=== PATIENT | male | born 1930 | race Caucasian/White ===

== ENCOUNTER 2017-09-23 20:41 | Inpatient (IN) | payer OTHER ==
[~2017-09-23] VITALS: Ht 182.9 cm; Wt 81.0 kg
--- NOTE | ~2017-09-23 | HC ---
[facility] [place] [address] CONSULTATION Name: KELLEN ZAVALA Room #: 247-P ADM IN M.R.#: [id number] Admission: 09/23/17 Attend Phys: Nelson Joshi MD Discharge: Date of : 30 Report #: [id number] THIS REPORT FOR: //name// CC: Britton Joshi REASON FOR CONSULTATION: I was asked to evaluate concerning pneumonia. HISTORY OF PRESENT ILLNESS: The patient is an 87-year-old who was transferred from [facility] with respiratory failure. The patient was initially treated at [facility] for small-bowel obstruction and sepsis. He required laparotomy on 08/10/2017. This specific surgical intervention is not clear at this time. He came back for a second-look procedure on 08/11/2017. Complications included non-STEMI, paroxysmal atrial fibrillation and congestive heart failure along with right upper extremity PICC-associated DVT. He had his abdominal wound left open to heal by secondary intention. Transferred to [facility] on 08/26/2017. He was malnourished. He was on IV antibiotic therapy including vancomycin and Zosyn. Vancomycin has been discontinued. He remains on Zosyn. He developed respiratory failure yesterday and was transferred to [facility] emergency room. He has been hypotensive. He had acute respiratory arrest and now is intubated on FiO2 of ____. He had a fairly large amount of tracheal secretions. There was a concern that he may have had a mucus plug. He remained afebrile. REVIEW OF SYSTEMS: He remains sedated. He has a left upper extremity midline catheter. Orally intubated. He has midline abdominal wound that is dressed. Indwelling Rdz catheter. No seizure activity. No diarrhea. It is unclear how much the patient had been eating prior to his arrival. ALLERGIES: None. MEDICATIONS: As noted on his MAR, now including vancomycin, Zosyn and Levaquin. PAST MEDICAL HISTORY: Bipolar disorder, ischemic heart disease, gastroesophageal reflux, hyperlipidemia, and hypertension. FAMILY HISTORY: Noncontributory. SOCIAL HISTORY: Single, nonsmoker, no significant alcohol intake. PHYSICAL EXAMINATION: VITAL SIGNS: Afebrile, blood pressure is in the 80 systolic on FiO2 of ____, he was unresponsive. HEENT: Pupils were reactive to light. Orally intubated. NECK: Supple. LUNGS: Coarse bilaterally, no consolidation. CARDIOVASCULAR: Heart was regular without appreciable murmur. [facility] [address] [place] [address] CONSULTATION Name: KELLEN ZAVALA Room #: 247-P [facility] IN .R.#: [id number] Admission: 09/23/17 Attend Phys: Nelson Joshi MD Discharge: Date of : 30 Report #: [id number] ABDOMEN: Mildly distended. Midline abdominal incisional wound was clean with good granulation tissue. No purulence. No surrounding erythema. No appreciable mass. EXTREMITIES: Unremarkable. GENITOURINARY: External genitalia unremarkable with indwelling Rdz catheter. EXTREMITIES: He did move all extremities spontaneously. LABORATORY STUDIES: Sodium 148, potassium 3.4, bicarbonate 35, creatinine 0.8, AST 32, bilirubin 0.5, alk phos 246, ALT 39, albumin of 1.3. Troponin 0.08. Hemoglobin 8.5, WBC 17.4, platelet count 305,000. Differential, 63% segs, 26% lymphs, 1 metamyelocyte, and 3 myelocytes. MRSA screen is pending. Urinalysis, few wbc's, many rbc's, few bacteria, yeast was present. ABG on 100% FIO2 earlier this morning showed a pO2 of 160, pCO2 of 68, pH 7.3 with a lactate of 2.5. Blood and urine cultures are pending. Influenza antigen negative. Chest x-ray, diffuse interstitial infiltrates, left basilar consolidation. Yesterday's CT of the chest and abdomen revealed distended gallbladder, large amount of stool in the colon, negative for PE, consolidation of left lung, likely due to mucous plugging. ____ consolidation in the right lung. IMPRESSION: An 87-year-old with respiratory failure, shock, bilateral infiltrates, suspect mucous plugging and pneumonia; postop bowel obstruction over 6 weeks ago; deep venous thrombosis right upper extremity, on anticoagulation; distended gallbladder, yet indeterminate; candiduria, catheter associated. Recommend continuing IV antibiotic therapy for healthcare-associated pneumonia. Continue full support. Await echocardiogram along with further imaging of the gallbladder. Check sputum culture. Obtain central venous access. Further assess nutritional status. I have discussed with nursing staff. <ELECTRONICALLY SIGNED> By: Kenyon Steele MD 09/25/17 1126 0944 1215 Kenyon Steele MD /nt
--- NOTE | ~2017-09-23 | CNG ---
[facility] [place] [address] CYTO-NONGYN REPORT PROCEDURE Name: KELLEN ZAVALA Room #: 247-P ADM IN M.R.#: [id number] Admission: 09/23/17 Date of : 30 Discharge: Report #: [id number] Path Case #: [id number] CYTOPATHOLOGY REPORT COLLECTION DATE: 09/28/2017 RECEIVED DATE: 09/29/2017 SUBMITTING PHYS: Dr. Dk Groves OTHER PHYS: Dr. Nelson Steele CLINICAL HISTORY: Increased SOA , sepsis, respiratory acidosis, HCAP, UTI, anemia, pneumonia SPECIMEN(S) RECEIVED: A.Pleural fluid, Right * * * * * * * * * * * * FINAL DIAGNOSIS: A. Right Pleural fluid: - No malignant cells identified. Mesothelial cells are present along with chronic inflammatory cells in a background of debris. PATHOLOGIST: Esperanza Altman M.D. REPORT ELECTRONICALLY SIGNED BY: Esperanza Altman M.D. DATE/TIME: 09/30/2017 14:53 * * * * * * * * * * * * GROSS PATHOLOGY: A. Pleural fluid, Right: The specimen is submitted unfixed, labeled "Kellen Zavala". Received by the Cytology Department is 20 mL of cloudy yellow fluid. One ThinPrep slide and a formalin fixed cell block were prepared. (clt 09.29.2017) EXPLOSIVES HANDLER(S): Sundar J Chaz, CT(ASCP) INITIAL CPT CODE(S): A; 44616, 03864 Professional services performed by [facility] at [facility] [address], [place] [address] Technical services performed by [facility] at [address] [place] [address]., [address], [place] [address]. [facility] [address] [place] [address], [address] [facility] [address] [place] [address] CYTO-NONGYN REPORT PROCEDURE Name: KELLEN ZAVALA Room #: 247-P ADM IN M.R.#: [id number] Admission: 09/23/17 Date of : 30 Discharge: Report #: [id number] Path Case #: [id number] [place] [id number] PHONE: [phone] DIRECTOR: Segun Coreas M.D. * * * END OF REPORT * * *
--- NOTE | ~2017-09-23 | EKG ---
[address] [place] [address] ELECTROCARDIOGRAM REPORT Name: KELLEN ZAVALA Room #: 247-P ADM IN M.R.#: [id number] Admission: 09/23/17 Attend Phys: Nelson Joshi MD Discharge: Date of : 30 Report #: [id number] THIS REPORT FOR: //name// [facility] ED Test Date: 2017-09-23 Test Time: 20:41:05 Pat Name: KELLEN ZAVALA Department: Room: [facility] Gender: M Massotherapist: SAKSHI : 1930 Requested By: Carlos Vickers Order Number: [id number] MD: Seb Hazel Measurements Intervals Remer Rate: 87 P: 26 LA: 177 QRS: 0 QRSD: 87 T: 32 QT: 474 QTc: 571 Interpretive Statements Sinus rhythm Atrial premature complex Probable anteroseptal infarct, old Prolonged QT interval No previous ECG available for comparison Electronically Signed On 09-24-2017 8:16:26 ROTARY KILN OPERATOR by Seb Hazel [email or web address] <ELECTRONICALLY SIGNED> By: Seb Hazel MD, [facility] 09/24/17 0816 40 40 Seb Hazel MD, FACC /EPI
--- NOTE | ~2017-09-23 | HC ---
[facility] [place] [address] CONSULTATION Name: KELLEN ZAVALA Room #: 247-P [facility] IN M.R.#: [id number] Admission: 09/23/17 Attend Phys: Nelson Joshi MD Discharge: Date of : 30 Report #: [id number] THIS REPORT FOR: //name// CC: Britton Joshi DATE OF SERVICE: 09/24/2017 CHIEF COMPLAINT: Surgical wound abdominal wall. HISTORY OF PRESENT ILLNESS: This is an 87-year-old male patient who was admitted to the hospital with respiratory failure. He was status code blue. He is intubated in the ICU. He is not responsive, is not able to answer any specific questions. He did have a hospitalization at [facility] in July for abdominal pain, had a small-bowel obstruction and sepsis, underwent exploratory laparotomy and bowel resection and secondary closure on 08/11. I have been asked to see him with regard to wound care. PAST MEDICAL HISTORY: Positive for bipolar disorder, ischemic heart disease, gastroesophageal reflux disease, dyslipidemia, hypertension and recent non-ST segment elevation myocardial infarction. PAST SURGICAL HISTORY: As detailed above. FAMILY HISTORY: Unknown. SOCIAL HISTORY: Unknown. ALLERGIES: None. MEDICATIONS: NovoLog, Levemir, Lopressor, Protonix, Zosyn, aspirin, Lipitor, Prozac, Lasix, potassium, Flomax, Coumadin. REVIEW OF SYSTEMS: Unable to be obtained as the patient is unresponsive. PHYSICAL EXAMINATION: VITAL SIGNS: At this time include pulse 93, respiratory rate 21, blood pressure 114/79, temperature 98.3. GENERAL: This is an unresponsive male patient who appears motionless in bed. HEENT: Normocephalic. Nose is clear. Throat demonstrates endotracheal tube in place. LUNGS: Coarse. HEART: Regular rhythm. ABDOMEN: Soft, nontender. There is a surgical incision in the midline that is . It is not dehisced, and there is a healing granulating base. There is one suture that is protruding through the surface that I have clipped to [facility] [address] [address] CONSULTATION Name: KELLEN ZAVALA Room #: 247-P ADM IN M.R.#: [id number] Admission: 09/23/17 Attend Phys: Nelson Joshi MD Discharge: Date of : 30 Report #: [id number] remove, otherwise the base is nice, healthy clean and granulating. EXTREMITIES: Show no evidence of breakdown. NEUROLOGIC: The patient is not responsive. LABORATORY DATA: Includes sodium 148, potassium 3.1, chloride 107, CO2 of 36, BUN 35, creatinine 0.9, glucose 74, total protein 6.1, albumin is very low at 1.3. White blood cell count 13.1, hemoglobin of 8.9, hematocrit of 27.8. CLINICAL IMPRESSION: 1. Surgical wound to the abdominal wall following a small-bowel obstruction and exploratory laparotomy in 07/2017. 2. Status post code blue. 3. Respiratory failure requiring mechanical ventilation. RECOMMENDATIONS: At this point in time, we will recommend Puracol AG followed by ABD to be changed 3 days a week to the abdominal wall. He will need to be turned and repositioned every 2 hours, need Prevalon boots to both lower extremities. He will need aggressive nutritional support to maximize wound healing. We will recommend continue all medications. I appreciate being asked to see him in consultation. <ELECTRONICALLY SIGNED> By: Yaron Davalos MD 09/25/17 1135 1746 2222 Yaron Davalos MD /nt
--- NOTE | ~2017-09-23 | D ---
[facility] [place] [address] DISCHARGE SUMMARY Name: KELLEN ZAVALA Room #: 437-P [facility] IN M.R.#: [id number] Admission: 09/23/17 Attend Phys: Nelson Joshi MD Discharge: 10/05/17 Date of : 30 Report #: [id number] THIS REPORT FOR: //name// CC: Britton Joshi FINAL DIAGNOSES: 1. Acute hypoxic hypercapnic respiratory failure. 2. Urfqu-ul-rhmnsly systolic heart failure. 3. Ischemic cardiomyopathy. 4. Coronary artery disease. 5. Atrial fibrillation. 6. Pleural effusion due to congestive heart failure. 7. Deep venous thrombosis of the right arm. 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 10. Anemia of chronic disease. 11. Severe protein-calorie malnutrition. HOSPITAL COURSE: The patient was admitted from an LTAC facility with shortness of breath and he quickly developed acute respiratory failure and required intubation and mechanical ventilation. Workup revealed bilateral pleural effusions and ischemic cardiomyopathy with ejection fraction 35%. Multiple consultants followed his case. He was also treated for healthcare-associated pneumonia with consideration of aspiration due to his oropharyngeal dysphagia. Although no cultures were positive, he was treated empirically, took him about a week to essentially wean from the ventilator. He did require a thoracentesis. Gradually, his condition stabilized and he was transferred up to the floor. Speech therapy saw him and he was cleared for pureed diet with nectar-thick liquids. He did have some hematuria related to Rdz catheter trauma. He was on Lovenox for level of DVT in the right arm. PHYSICAL EXAMINATION: GENERAL: On the day of discharge, he was awake and alert, stable. VITAL SIGNS: Reviewed electronically. He was eating 70%-80% of his meals. HEENT: His speech was still unclear which was chronic. LUNGS: Clear. HEART: Irregular. ABDOMEN: Soft, normoactive bowel sounds with old midline incision. EXTREMITIES: Showed no edema. DISPOSITION: To be transferred to [facility]. I signed his transfer medications. He will continue another week of antibiotics. He will be on an altered diet. Full therapies to be ordered. Lovenox to continue with [facility] [address] [place] [address] DISCHARGE SUMMARY Name: KELLEN ZAVALA Room #: 437-P [facility] IN M.R.#: [id number] Admission: 09/23/17 Attend Phys: Nelson Joshi MD Discharge: 10/05/17 Date of : 30 Report #: [id number] consideration to switching to oral treatment for DVT in the right arm. Overall, his prognosis is poor given his comorbidities, advanced age and debility. <ELECTRONICALLY SIGNED> By: Perez Roberto MD 10/06/17 0955 0927 0957 Perez Roberto MD /nt
--- NOTE | ~2017-09-23 | HC ---
[facility] [place] [address] CONSULTATION Name: KELLEN ZAVALA Room #: 437-P [facility] IN M.R.#: [id number] Admission: 09/23/17 Attend Phys: Nelson Joshi MD Discharge: 10/05/17 Date of : 30 Report #: [id number] THIS REPORT FOR: //name// CC: Britton Joshi DATE OF SERVICE: 09/24/2017 PULMONARY CONSULTATION REFERRING PROVIDER: Perez Roberto MD REASON FOR CONSULTATION: Respiratory failure. CHIEF COMPLAINT: Shortness of breath. HISTORY OF PRESENT ILLNESS: Our group was called this morning to evaluate this patient, seen in the ICU and followed throughout the morning. He is unable to give any history due to mechanical ventilatory support. He is an 87-year-old male transferred from [facility] for increasing shortness of breath. The patient was in respiratory distress in the Emergency Department, placed on BiPAP and subsequently admitted overnight; however, the patient decompensated, had a code blue arrest this morning requiring emergent intubation due to rapid desaturation. Nursing reports thick secretions being aspirated from airway. The patient is unable to give any further history. Review of records available shows a recent abdominal surgery where he was hospitalized at [facility] in July for a small bowel obstruction and sepsis including exploratory laparotomy and small bowel resection and appears to have a wound closing by secondary intent. Hospital course was complicated by non-ST elevation MT, atrial fibrillation, sepsis and upper extremity DVT associated with PICC line. Currently, not anticoagulated. ALLERGIES: None known. PAST MEDICAL HISTORY: 1. Bipolar affective disorder. 2. Coronary artery disease. 3. Gastroesophageal reflux disease. 4. Hyperlipidemia. 5. Hypertension. SOCIAL HISTORY: Unobtainable. FAMILY HISTORY: Unobtainable. [facility] [address] [place] [address] CONSULTATION Name: KELLEN ZAVALA Room #: 437-P [facility] IN .R.#: [id number] Admission: 09/23/17 Attend Phys: Nelson Joshi MD Discharge: 10/05/17 Date of : 30 Report #: [id number] REVIEW OF SYSTEMS: Unobtainable all due to his current status. CURRENT INPATIENT MEDICATIONS: 1. Vancomycin. 2. Levaquin. 3. Zosyn. 4. DuoNeb. Apparently, the patient may have also been on TPN at the LTAC. PHYSICAL EXAMINATION: VITAL SIGNS: Afebrile, pulse 90s, respiratory rate 15 set on the ventilator, blood pressure 99/65. GENERAL: This is an elderly male, sedated on the ventilator. ENT: Endotracheal tube in place. NECK: Supple, no lymphadenopathy. LUNGS: Coarse and diminished. CARDIOVASCULAR: Heart was regular. Cannot appreciate any murmurs. ABDOMEN: Soft. A midline wound appears to be healing by secondary intent with no significant pathology otherwise noted. EXTREMITIES: Revealed 1+ edema. They are warm with 2+ pulses. LABORATORY DATA: White blood cell count 13,000, hemoglobin 8.9, hematocrit 28, platelet count 285. Sodium 148, potassium 3.1, chloride 107, bicarbonate 36, BUN 35, creatinine 0.9, glucose 74. Initial arterial blood gas revealed pH 7.31, pCO2 of 75, pO2 of 56, bicarbonate 39 on nonrebreather mask. Chest x-ray revealed dense left lung atelectasis, mediastinal shift to the left with bilateral pleural effusions and pulmonary edema pattern after intubation. Chest x-ray revealed significant findings suggestive of pulmonary edema and still some volume loss and mediastinal shift to the left and markedly improved aeration of the lungs. IMPRESSION AND PLAN: 1. Pneumonia. 2. Acute hypoxemic respiratory failure. 3. Status post respiratory arrest, now on the ventilator. 4. Large bilateral pleural effusions, possibly pulmonary edema. 5. Sepsis due to the above. 6. Recent abdominal surgery for small bowel obstruction. 7. Acute hypercapnic respiratory failure, may be chronic to some degree given his findings of elevated bicarbonate at baseline on admission. 8. Upper extremity deep venous thrombosis. 9. Pyuria. 10. Anemia. 11. Hypernatremia and hypokalemia. [address] [address] CONSULTATION Name: KELLEN ZAVALA Room #: 437-P [facility] IN ..#: [id number] Admission: 09/23/17 Attend Phys: Nelson Joshi MD Discharge: 10/05/17 Date of : 30 Report #: [id number] SUGGESTIONS: 1. Wound care evaluation of abdominal wound. 2. Await cultures. 3. Antibiotics per infectious disease service. 4. Bronchodilators. 5. Decrease IV fluids and if needed, suggest hypotonic fluids to correct hypernatremia. 6. Followup x-rays and arterial blood gas in a.m. 7. Check echocardiogram. 8. May need thoracentesis. 9. Continue intensive care unit care. Additional recommendations to follow. Total critical care time 45 minutes, not including procedures. Discussed with nursing and Dr. Kenyon Steele. <ELECTRONICALLY SIGNED> By: Dk Groves MD 10/06/17 1233 1321 1930 Dk Groves MD /nt
--- NOTE | ~2017-09-23 | 2DMMODE ---
[facility] [address] [place] [address] 2 D/M-MODE ECHOCARDIOGRAM Name: KELLEN ZAVALA Room #: 247-P ADM IN M.R.#: [id number] Admission: 09/23/17 Attend Phys: Joya Griffiths Discharge: Date of : 30 Date of Service: 09/24/17 1105 Report #: [id number] THIS REPORT FOR: //name// APPROVED REPORT Study performed: 09/24/2017 09:04:49 EXAM: Comprehensive 2D, Doppler, and color-flow Echocardiogram Patient Location: ICU Room #: [facility] Status: routine BSA: 2.03 HR: 98 bpm BP: 97/67 mmHg Other Information Study Quality: Adequate Indications Congestive Heart Failure Dyspnea CAD 2D Dimensions LVEF(%): 40.29 (>50%) IVSd: 8.90 (7-11mm) LVOT Diam: 25.25 (18-24mm) LVDd: 53.51 mm PWd: 9.48 (7-11mm) Ascending Ao: 36.52 (22-36mm) LVDs: 42.90 (25-40mm) Aortic Root: 36.29 mm IVC: 23.00 mm Fajardo's LVEF: 40.29 % Aortic Valve AoV Peak Moshe.: 0.99 m/s AO Peak Gr.: 3.89 mmHg LVOT Max P.31 mmHg LVOT Max V: 0.76 m/s REINA Vmax: 3.86 cm2 Mitral Valve E/A Ratio: 0.8 MV Decel. Time: 394.37 ms MV E Max Moshe.: 0.66 m/s MV A Moshe.: 0.79 m/s MV PHT: 114.37 ms IVRT: 152.25 ms [facility] [address] [place] [address] 2 D/M-MODE ECHOCARDIOGRAM Name: KELLEN ZAVALA Room #: [facility] IN ..#: [id number] Admission: 09/23/17 Attend Phys: Joya Griffiths Discharge: Date of : 30 Date of Service: 09/24/17 1105 Report #: [id number] Pulmonary Valve PV Peak Moshe.: 0.89 m/s PV Peak Gr.: 3.19 mmHg Pulmonary Vein P Vein S: 0.48 m/s P Vein A: 0.30 m/s P Vein D: 0.30 m/s P Vein A Dur.: 101.5 msec P Vein S/D Ratio: 1.60 Tricuspid Valve TR Peak Moshe.: 2.42 m/s TR Peak Gr.: 23.50 mmHg PA Pressure: 34.00 mmHg Left Ventricle The left ventricle is normal size. There is normal left ventricular wall thickness. Left ventricular ejection fraction is moderately decreased. Septal and anterior wall hypokinesis LVEF is 30-35%. Grade I - abnormal relaxation pattern. Right Ventricle The right ventricle is normal size. The right ventricular systolic function is normal. Atria The left atrium size is normal. Thickened atrial septum consistent with lipomatous hypertrophy The right atrium size is normal. Aortic Valve The aortic valve is normal in structure. No aortic regurgitation is present. There is no aortic valvular stenosis. Mitral Valve The mitral valve is normal in structure. Trace mitral regurgitation. No evidence of mitral valve stenosis. Tricuspid Valve The tricuspid valve is normal in structure. There is trace tricuspid regurgitation. Estimated PAP 34 mmHg. There is mild pulmonary hypertension. Pulmonic Valve The pulmonary valve is normal in structure. Trace to mild pulmonic regurgitation. Great Vessels [facility] [address] [place] [address] 2 D/M-MODE ECHOCARDIOGRAM Name: KELLEN ZAVALA Room #: 247-P [facility] IN M.R.#: [id number] Admission: 09/23/17 Attend Phys: Joya Griffiths Discharge: Date of : 30 Date of Service: 09/24/17 1105 Report #: [id number] The aortic root is normal in size. IVC is dilated and collapses <50% with inspiration. Pericardium There is no pericardial effusion. <Conclusion> Left ventricular ejection fraction is moderately decreased. Septal and anterior wall hypokinesis LVEF is 30-35%. Grade I - abnormal relaxation pattern. Thickened atrial septum consistent with lipomatous hypertrophy The aortic valve is normal in structure. No aortic regurgitation is present. The mitral valve is normal in structure. Trace mitral regurgitation. There is trace tricuspid regurgitation. Estimated pulmonary artery pressure of 35 mmHg. There is no pericardial effusion. <ELECTRONICALLY SIGNED> By: Seb Hazel MD, FACC 09/24/17 1105 1105 1105 Seb Hazel MD, FACC /INF
--- NOTE | ~2017-09-23 | H ---
[facility] [place] [address] HISTORY AND PHYSICAL Name: KELLEN ZAVALA Room #: 247-P ADM IN M.R.#: [id number] Admission: 09/23/17 Attend Phys: Nelson Joshi MD Discharge: Date of : 30 Report #: [id number] THIS REPORT FOR: //name// CC: Britton Joshi DATE OF SERVICE: 09/24/2017 CHIEF COMPLAINT: Shortness of breath and respiratory failure. HISTORY OF PRESENT ILLNESS: The patient is an 87-year-old gentleman, transferred from [facility] facility for evaluation of shortness of breath. Over the last 24 hours, he has had increasing difficulties breathing with a high respiratory rate and low oxygen saturation. X-ray at the outlying facility revealed bilateral infiltrates, worsening. The Pulmonary Service and Internal Medicine Services evaluated him there and added antibiotics, respiratory treatments and a higher flow oxygen overnight; however, his condition has worsened, and this morning, he developed respiratory distress and was sent to the Emergency Room. Overnight, he has been admitted to ICU and treated for sepsis; however, this morning, he developed what sounds to be acute respiratory arrest requiring initiation of code blue team. He subsequently been intubated and placed on the ventilator. At this point, he has stable oxygen saturations, blood pressure and heart rate. His recent history is that he was hospitalized at [facility] in July for abdominal pain, where he was ultimately diagnosed with a small-bowel obstruction and sepsis. He eventually failed conservative treatment and required exploratory laparotomy with bowel resection and a secondary closure around 08/11. He had complications during that course including non-ST segment myocardial infarction, atrial fibrillation, sepsis and DVT of the right arm related to a PICC line. He has been medically stabilized and then transferred to [facility] on 08/26. All the history is obtained by reviewing the records as he cannot provide any details. 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 PAST SURGICAL HISTORY: As above. FAMILY HISTORY: Unknown. SOCIAL HISTORY: There was report of no tobacco or alcohol history. ALLERGIES: None. [facility] [address] [place] [address] HISTORY AND PHYSICAL Name: KELLEN ZAVALA Room #: 247-P ADM IN M.R.#: [id number] Admission: 09/23/17 Attend Phys: Nelson Joshi MD Discharge: Date of : 30 Report #: [id number] MEDICATIONS: NovoLog, Levemir, Lopressor, Protonix, Zosyn, aspirin, Lipitor, Prozac, Lasix, potassium, Flomax, Coumadin. REVIEW OF SYSTEMS: He is unable to give any review. OBJECTIVE: VITAL SIGNS: Pulse 84, respirations 15, O2 sat 100% on the ventilator, blood pressure 107/71. GENERAL: He is an elderly man, looks chronically ill, is not alert. HEAD AND NECK: Life support lines are present in the mouth and throat. He has poor dentition. Neck no JVD. LUNGS: Clear anteriorly. HEART: Irregular. No murmur. ABDOMEN: Hypoactive bowel sounds. There is a large midline incision, closed. EXTREMITIES: There is 1+ edema in the arms, right greater than left. NEUROLOGIC: At this point, he does not follow any neuro exam. LABORATORY AND X-RAY DATA: Reviewed. ASSESSMENT: 1. Acute hypercapnic hypoxic respiratory failure. 2. Sepsis. 3. Healthcare-associated pneumonia. 4. Small-bowel obstruction with recent exploratory laparotomy, bowel resection and secondary closure. 5. Recent non-ST segment myocardial infarction. 6. Atrial fibrillation. 7. Ischemic heart disease. 8. Acute deep venous thrombosis of the right arm due to a PICC line. 9. Anemia of chronic disease. 10. Toxic metabolic encephalopathy. 11. Severe protein-calorie malnutrition. PLAN: He has been admitted to ICU with full care at this point. Multiple consultants will be brought into the case. I have asked for a CT of the chest, abdomen and pelvis to assess for infectious processes in his bowel status. He has developed hypoglycemia, off his TPN related to previous insulin use, and at this point, all of that will be discontinued and just placed on IV fluid until we have more information. Overall, poor prognosis given his age, recent medical illness and complicating comorbidities. Pending labs, he may need a Lovenox for DVT prophylaxis. <ELECTRONICALLY SIGNED> By: Perez Roberto MD 09/24/17 1005 [id number] [id number] Perez Roberto MD /nt
[2017-09-23 20:43] VITALS: BP 111/59
[2017-09-23 21:02] LABS: BE(vivo) 8.8 mmol/L (-2 to +3); HCO3 36.9 mmol/L (22.0-26.0); PO2 55.8 mmHg (80.0-100.0); sO2 84.8 % (92.0-98.0)
[2017-09-23 21:09] LABS: HEMATOCRIT 26.7 % (42.0-52.0); HEMOGLOBIN 8.6 gm/dL (14.0-18.0); MCH 29.9 pg (26.0-34.0); MCHC 32.3 g/dL (28.0-37.0); MCV 92.4 fL (80.0-100.0); PLATELET COUNT 318 thou/uL (150-400); RBC 2.89 mil/uL (4.50-6.00); RDW 16.6 % (10.5-14.5); WBC 10.2 thou/uL (4.0-11.0)
[2017-09-23 21:15] LABS: CALCIUM 8.2 mg/dL (8.5-10.1); CREATININE 0.8 mg/dL (0.7-1.3); POTASSIUM 3.4 mmol/L (3.5-5.1)
[2017-09-23 21:23] LABS: ALBUMIN 1.3 g/dL (3.4-5.0); TOTAL BILIRUBIN 0.5 mg/dL (<0.1-1.0); TOTAL PROTEIN 6.1 g/dL (6.4-8.2); TROPONIN-I 0.08 ng/mL (<0.06)
[2017-09-23 21:24] LABS: URINE BILIRUBIN NEGATIVE (Negative); URINE BLOOD 3+ (Negative); URINE CLARITY CLEAR; URINE COLOR YELLOW; URINE GLUCOSE-RANDOM* NEGATIVE (Negative); URINE KETONES NEGATIVE (Negative); URINE NITRITE-REFLEX NEGATIVE (Negative); URINE PROTEIN (DIPSTICK) TRACE (Negative); URINE SPECIFIC GRAVITY 1.015 (1.005-1.035); URINE UROBILINOGEN 0.2 E.U./dl (0.2-1.0)
[2017-09-23 21:25] LABS: URINE LEUKOCYTES-REFLEX 1+ (Negative)
[2017-09-23] MEDS ORDERED: ASPIR 8181 MG PO (21:28)
[2017-09-23] MEDS ORDERED: LIPITOR40 MG PO (21:28)
[2017-09-23] MEDS ORDERED: DUONEB 2.5-0.5 M3 ML INH (21:28)
[2017-09-23] MEDS ORDERED: CLINIMIX E IV (21:29)
[2017-09-23] MEDS ORDERED: CLOTRIMAZOLE 1%15 G1 TOP (21:30)
[2017-09-23] MEDS ORDERED: PROZAC 10 MG CA10 MG PO (21:31)
[2017-09-23] MEDS ORDERED: SMOFLIPID 20%100 ML IV (21:31)
[2017-09-23] MEDS ORDERED: LASIX 40 MG TAB40 M2 PO (21:32)
[2017-09-23] MEDS ORDERED: NOVOLOG100 UNIT/1 SUBQ (21:33)
[2017-09-23 21:34] LABS: BACTERIA-REFLEX 1-9 Few /HPF (None Seen); CRYSTALS None Seen /LPF (None Seen); SQUAMOUS 0-3 Few /LPF (0-3); URINE RBC >20 Many /HPF (0-2); URINE WBC-REFLEX 6-15 Few /HPF (0-5)
[2017-09-23] MEDS ORDERED: LEVEMIR100 UNIT/1 SUBQ (21:34)
[2017-09-23 21:35] LABS: HYALINE CASTS 4-10 Moderate /LPF (None Seen); MUCUS 4-6 Moderate strn/LPF (None Seen); YEAST-REFLEX Present (None Seen)
[2017-09-23] MEDS ORDERED: TOPROL XL25 MG PO (21:35)
[2017-09-23] MEDS ORDERED: BAZA CR.1 E1 TOP (21:37)
[2017-09-23 21:38] LABS: ABSOLUTE NEUTROPHILS 9.6 thou/uL (1.4-8.2); ANISOCYTOSIS 1+; POLYCHROMASIA OCCASIONAL
[2017-09-23] MEDS ORDERED: PROTONIX40 M1 PO (21:38)
[2017-09-23] MEDS ORDERED: ZOSYN 3/0.373.375 G3 IVPB (21:38)
[2017-09-23] MEDS ORDERED: TAMSULOSIN HCL0.4 MG PO (21:39)
[2017-09-23] MEDS ORDERED: UNICOMPLEX M TA1 TA1 PO (21:39)
[2017-09-23] MEDS ORDERED: COUMADIN 4 MG TA4 M1 PO (21:39)
[2017-09-23 23:32] LABS: BE(vivo) 7.8 mmol/L (-2 to +3); PCO2 50.3 mmHg (35.0-45.0); PO2 119.7 mmHg (80.0-100.0); pH 7.435 (7.360-7.450); sO2 98.4 % (92.0-98.0)
[2017-09-23 23:40] VITALS: BP 120/51
[2017-09-23 23:55] VITALS: BP 120/67
[2017-09-24] VITALS (75 sets, daily range): BP systolic 74–170; BP diastolic 44–96
[2017-09-24 06:26] LABS: BE(vivo) 5.7 mmol/L (-2 to +3); HCO3 33.4 mmol/L (22.0-26.0); PO2 160.6 mmHg (80.0-100.0); sO2 98.8 % (92.0-98.0)
[2017-09-24 06:27] LABS: PCO2 68.1 mmHg (35.0-45.0); pH 7.308 (7.360-7.450)
[2017-09-24 06:38] LABS: HEMATOCRIT 27.2 % (42.0-52.0); HEMOGLOBIN 8.5 gm/dL (14.0-18.0); MCH 29.3 pg (26.0-34.0); MCHC 31.4 g/dL (28.0-37.0); MCV 93.4 fL (80.0-100.0); PLATELET COUNT 305 thou/uL (150-400); RBC 2.91 mil/uL (4.50-6.00); RDW 16.8 % (10.5-14.5); WBC 17.4 thou/uL (4.0-11.0)
[2017-09-24 06:42] LABS: CALCIUM 7.7 mg/dL (8.5-10.1); CREATININE 0.8 mg/dL (0.7-1.3); MAGNESIUM 1.9 mg/dL (1.8-2.4); POTASSIUM 3.4 mmol/L (3.5-5.1)
[2017-09-24 09:09] LABS: METAMYELOCYTES 1 %; MYELOCYTES 3 %; NUCLEATED RBCS 1 /100WBC; PLATELET ESTIMATE NORMAL
[2017-09-24 09:30] LABS: HEMATOCRIT 27.8 % (42.0-52.0); HEMOGLOBIN 8.9 gm/dL (14.0-18.0); MCH 29.3 pg (26.0-34.0); MCHC 31.9 g/dL (28.0-37.0); MCV 91.8 fL (80.0-100.0); RBC 3.03 mil/uL (4.50-6.00); RDW 16.9 % (10.5-14.5); WBC 13.1 thou/uL (4.0-11.0)
[2017-09-24 09:40] LABS: INR 1.5; PROTIME 15.2 Seconds (9.3-11.4)
[2017-09-24 09:53] LABS: ALBUMIN 1.3 g/dL (3.4-5.0); CALCIUM 8.1 mg/dL (8.5-10.1); CREATININE 0.9 mg/dL (0.7-1.3); POTASSIUM 3.1 mmol/L (3.5-5.1); TOTAL BILIRUBIN 0.6 mg/dL (<0.1-1.0); TOTAL PROTEIN 6.1 g/dL (6.4-8.2)
[2017-09-24 12:10] LABS: HCO3 29.4 mmol/L (22.0-26.0); PCO2 37.4 mmHg (35.0-45.0); PO2 52.9 mmHg (80.0-100.0); pH 7.513 (7.360-7.450); sO2 90.6 % (92.0-98.0)
[2017-09-25] VITALS (12 sets, daily range): BP systolic 94–119; BP diastolic 47–73
[2017-09-25 05:08] LABS: BE(vivo) 10.2 mmol/L (-2 to +3); HCO3 34.6 mmol/L (22.0-26.0); pH 7.494 (7.360-7.450); sO2 98.6 % (92.0-98.0)
[2017-09-25 05:28] LABS: ABSOLUTE NEUTROPHILS 7.6 thou/uL (1.4-8.2); BASOPHILS 0.1 % (0.0-2.0); EOSINOPHILS 1.2 % (0.0-3.0); HEMATOCRIT 23.9 % (42.0-52.0); HEMOGLOBIN 7.6 gm/dL (14.0-18.0); LYMPHOCYTES 8.9 % (24.0-44.0); MCH 29.3 pg (26.0-34.0); MCV 91.7 fL (80.0-100.0); MONOCYTES 4.6 % (1.0-8.0); PLATELET COUNT 241 thou/uL (150-400); POLYS 85.2 % (36.0-66.0); RBC 2.61 mil/uL (4.50-6.00); RDW 16.9 % (10.5-14.5); WBC 8.9 thou/uL (4.0-11.0)
[2017-09-25 05:39] LABS: INR 2.1
[2017-09-25 05:52] LABS: ALBUMIN 1.1 g/dL (3.4-5.0); CALCIUM 7.7 mg/dL (8.5-10.1); CREATININE 0.9 mg/dL (0.7-1.3); MAGNESIUM 1.8 mg/dL (1.8-2.4); PHOSPHORUS 2.4 mg/dL (2.5-4.9); TOTAL BILIRUBIN 0.7 mg/dL (<0.1-1.0); TOTAL PROTEIN 5.6 g/dL (6.4-8.2)
[2017-09-25 15:56] LABS: CALCIUM 7.8 mg/dL (8.5-10.1); CREATININE 0.8 mg/dL (0.7-1.3); POTASSIUM 3.2 mmol/L (3.5-5.1)
[2017-09-26] VITALS (23 sets, daily range): BP systolic 92–117; BP diastolic 48–87
[2017-09-26 05:03] LABS: CALCIUM 7.7 mg/dL (8.5-10.1); CREATININE 0.8 mg/dL (0.7-1.3); PHOSPHORUS 2.3 mg/dL (2.5-4.9); POTASSIUM 3.3 mmol/L (3.5-5.1)
[2017-09-26 08:56] LABS: HEMATOCRIT 24.6 % (42.0-52.0); HEMOGLOBIN 7.8 gm/dL (14.0-18.0); MCH 29.1 pg (26.0-34.0); MCHC 31.9 g/dL (28.0-37.0); MCV 91.5 fL (80.0-100.0); RBC 2.69 mil/uL (4.50-6.00); RDW 17.4 % (10.5-14.5); WBC 7.1 thou/uL (4.0-11.0)
[2017-09-26 09:00] LABS: CREATININE 0.8 mg/dL (0.7-1.3); POTASSIUM 3.5 mmol/L (3.5-5.1)
[2017-09-26 09:55] LABS: INR 2.1; PROTIME 21.2 Seconds (9.3-11.4)
[2017-09-27] VITALS (24 sets, daily range): BP systolic 92–117; BP diastolic 51–86
[2017-09-27 04:41] LABS: INR 1.6; PROTIME 16.2 Seconds (9.3-11.4)
[2017-09-27 04:45] LABS: CALCIUM 7.5 mg/dL (8.5-10.1); CREATININE 0.8 mg/dL (0.7-1.3); MAGNESIUM 1.9 mg/dL (1.8-2.4); PHOSPHORUS 2.4 mg/dL (2.5-4.9); POTASSIUM 3.6 mmol/L (3.5-5.1)
[2017-09-27 05:13] LABS: BE(vivo) 4.3 mmol/L (-2 to +3); HCO3 27.8 mmol/L (22.0-26.0); PCO2 36.9 mmHg (35.0-45.0); PO2 93.1 mmHg (80.0-100.0); pH 7.495 (7.360-7.450); sO2 97.7 % (92.0-98.0)
[2017-09-27 08:23] LABS: HEMATOCRIT 24.7 % (42.0-52.0); HEMOGLOBIN 7.9 gm/dL (14.0-18.0); MCH 29.2 pg (26.0-34.0); MCV 91.3 fL (80.0-100.0); RBC 2.7 mil/uL (4.50-6.00); RDW 16.9 % (10.5-14.5); WBC 6.2 thou/uL (4.0-11.0)
[2017-09-28] VITALS (23 sets, daily range): BP systolic 91–136; BP diastolic 52–97
[2017-09-28 05:28] LABS: INR 1.4; PROTIME 13.8 Seconds (9.3-11.4)
[2017-09-28 05:47] LABS: CALCIUM 7.6 mg/dL (8.5-10.1); CREATININE 0.7 mg/dL (0.7-1.3); MAGNESIUM 1.8 mg/dL (1.8-2.4); PHOSPHORUS 2.1 mg/dL (2.5-4.9); POTASSIUM 3.5 mmol/L (3.5-5.1)
[2017-09-28 15:12] LABS: CLARITY CLOUDY; COLOR AMBER; SOURCE RIGHT CHEST; TOTAL VOLUME 60 mL
[2017-09-28 15:19] LABS: BF NUCLEATED CELLS 376; BF RBC 7650
[2017-09-28 15:47] LABS: SOURCE CHEST
[2017-09-29] VITALS (24 sets, daily range): BP systolic 98–134; BP diastolic 55–86
[2017-09-29 06:22] LABS: HEMATOCRIT 25.4 % (42.0-52.0); HEMOGLOBIN 8.1 gm/dL (14.0-18.0); MCHC 31.9 g/dL (28.0-37.0); MCV 90.9 fL (80.0-100.0); RBC 2.8 mil/uL (4.50-6.00); RDW 16.9 % (10.5-14.5); WBC 5.4 thou/uL (4.0-11.0)
[2017-09-29 06:32] LABS: CALCIUM 7.7 mg/dL (8.5-10.1); CREATININE 0.8 mg/dL (0.7-1.3); POTASSIUM 3.5 mmol/L (3.5-5.1)
[2017-09-29 11:09] LABS: BODY FLUID ALBUMIN 0.9 g/dL (()); BODY FLUID AMYLASE 40 U/L (()); BODY FLUID GLUCOSE 126 mg/dL (()); BODY FLUID LDH 242 IU/L (()); BODY FLUID PROTEIN 2.2 g/dL (())
[2017-09-29 14:31] LABS: HCO3 28.1 mmol/L (22.0-26.0); PCO2 39.8 mmHg (35.0-45.0); PO2 107.4 mmHg (80.0-100.0); pH 7.466 (7.360-7.450); sO2 98.2 % (92.0-98.0)
[2017-09-30] VITALS (23 sets, daily range): BP systolic 95–125; BP diastolic 60–97
[2017-09-30 09:42] LABS: BE(vivo) 5.6 mmol/L (-2 to +3); HCO3 29.3 mmol/L (22.0-26.0); PCO2 38.8 mmHg (35.0-45.0); PO2 97.2 mmHg (80.0-100.0); pH 7.496 (7.360-7.450); sO2 97.9 % (92.0-98.0)
[2017-09-30 12:46] LABS: BF MACROPHAGE 29; BF NEUTROPHILS 16
[2017-10-01] VITALS (23 sets, daily range): BP systolic 103–134; BP diastolic 62–109
[2017-10-01 05:16] LABS: HEMATOCRIT 25.4 % (42.0-52.0); HEMOGLOBIN 8.2 gm/dL (14.0-18.0); MCH 28.5 pg (26.0-34.0); MCHC 32.1 g/dL (28.0-37.0); RBC 2.86 mil/uL (4.50-6.00); RDW 16.9 % (10.5-14.5); WBC 4.6 thou/uL (4.0-11.0)
[2017-10-01 05:36] LABS: CALCIUM 7.7 mg/dL (8.5-10.1); CREATININE 0.8 mg/dL (0.7-1.3); POTASSIUM 3.2 mmol/L (3.5-5.1)
[2017-10-02] VITALS (21 sets, daily range): BP systolic 107–151; BP diastolic 43–107
[2017-10-02 04:08] LABS: HEMATOCRIT 26.4 % (42.0-52.0); HEMOGLOBIN 8.7 gm/dL (14.0-18.0); MCV 87.8 fL (80.0-100.0); RBC 3.01 mil/uL (4.50-6.00); RDW 16.9 % (10.5-14.5); WBC 4.7 thou/uL (4.0-11.0)
[2017-10-02 04:16] LABS: CALCIUM 7.6 mg/dL (8.5-10.1); CREATININE 0.7 mg/dL (0.7-1.3); POTASSIUM 3.6 mmol/L (3.5-5.1)
[2017-10-03 00:26] VITALS: BP 132/75
[2017-10-03 04:33] VITALS: BP 130/72
[2017-10-03 07:44] LABS: CALCIUM 7.6 mg/dL (8.5-10.1); CREATININE 0.8 mg/dL (0.7-1.3); POTASSIUM 3.1 mmol/L (3.5-5.1)
[2017-10-03 08:50] VITALS: BP 151/76
[2017-10-03 16:13] VITALS: BP 133/83
[2017-10-03 19:58] VITALS: BP 137/90
[2017-10-04 03:50] VITALS: BP 134/79
[2017-10-04 07:23] LABS: HEMATOCRIT 27.8 % (42.0-52.0); HEMOGLOBIN 8.8 gm/dL (14.0-18.0); MCH 28.4 pg (26.0-34.0); MCHC 31.8 g/dL (28.0-37.0); MCV 89.4 fL (80.0-100.0); RBC 3.11 mil/uL (4.50-6.00); RDW 17.3 % (10.5-14.5); WBC 4.6 thou/uL (4.0-11.0)
[2017-10-04 07:35] LABS: CALCIUM 7.9 mg/dL (8.5-10.1); CREATININE 0.7 mg/dL (0.7-1.3); POTASSIUM 3.4 mmol/L (3.5-5.1)
[2017-10-04 07:38] VITALS: BP 123/75; BP 145/84
[2017-10-04 19:52] VITALS: BP 137/79
[2017-10-05 02:50] VITALS: BP 129/76
[2017-10-05 06:41] LABS: HEMOGLOBIN 10.3 gm/dL (14.0-18.0); MCHC 31.2 g/dL (28.0-37.0); MCV 89.9 fL (80.0-100.0); RBC 3.67 mil/uL (4.50-6.00); RDW 17.9 % (10.5-14.5); WBC 8.8 thou/uL (4.0-11.0)
[2017-10-05 06:47] LABS: CREATININE 0.9 mg/dL (0.7-1.3); POTASSIUM 3.7 mmol/L (3.5-5.1)
[2017-10-05 07:01] LABS: CALCIUM 8.5 mg/dL (8.5-10.1)
[2017-10-05 08:08] VITALS: BP 119/73
[2017-10-05] MEDS ORDERED: AUGMENTIN 875-1 EACH PO (09:15)
[2017-10-05] MEDS ORDERED: ENOXAPARIN80 MG/0.1 SUBQ (09:15)
== END 2017-10-05 14:25 | DRG 870 ==
LOC: ER 20:41 → ICU 22:13 → EROBS 22:13 → ICU 23:45 → 4S 10-02 18:39
PROVIDERS: Emergency Medicine; Internal Medicine; Internal Medicine Geriatric Medicine; Internal Medicine Pulmonary Disease; Specialist
DX: A41.9 Sepsis, unspecified organism (principal); E43 Unspecified severe protein-calorie malnutrition; J96.01 Acute respiratory failure with hypoxia; J96.02 Acute respiratory failure with hypercapnia; G92 Toxic encephalopathy; I50.43 Acute on chronic combined systolic (congestive) and diastolic (congestive) heart failure; J69.0 Pneumonitis due to inhalation of food and vomit; N39.0 Urinary tract infection, site not specified; J90 Pleural effusion, not elsewhere classified; E87.0 Hyperosmolality and hypernatremia; K56.609 Unspecified intestinal obstruction, unspecified as to partial versus complete obstruction; G72.81 Critical illness myopathy; T17.590A Other foreign object in bronchus causing asphyxiation, initial encounter; J98.11 Atelectasis; F31.9 Bipolar disorder, unspecified; K21.9 Gastro-esophageal reflux disease without esophagitis; E87.6 Hypokalemia; I25.9 Chronic ischemic heart disease, unspecified; I25.5 Ischemic cardiomyopathy; I48.91 Unspecified atrial fibrillation; I25.10 Atherosclerotic heart disease of native coronary artery without angina pectoris; D63.8 Anemia in other chronic diseases classified elsewhere; R65.20 Severe sepsis without septic shock; R13.10 Dysphagia, unspecified; R31.9 Hematuria, unspecified; E78.5 Hyperlipidemia, unspecified; I10 Essential (primary) hypertension; Z79.01 Long term (current) use of anticoagulants; I25.2 Old myocardial infarction; Z68.24 Body mass index [BMI] 24.0-24.9, adult; Z79.82 Long term (current) use of aspirin; Z79.899 Other long term (current) drug therapy; X58.XXXA Exposure to other specified factors, initial encounter; Y93.89 Activity, other specified; Y92.89 Other specified places as the place of occurrence of the external cause; Y99.8 Other external cause status
CPT/HCPCS: 10078; 10102

== ENCOUNTER 2017-10-05 18:02 | Inpatient (IN) | payer OTHER ==
[~2017-10-05] VITALS: Ht 182.9 cm; Wt 58.5 kg
--- NOTE | ~2017-10-05 | D ---
[facility] [place] [address] DISCHARGE SUMMARY Name: KELLEN ZAVALA Room #: 358-P [facility] IN M.R.#: [id number] Admission: 10/05/17 Attend Phys: Perez Roberto MD Discharge: 10/20/17 Date of : 30 Report #: [id number] THIS REPORT FOR: //name// CC: Britton Roberto DATE OF SERVICE: 10/20/2017 FINAL DIAGNOSES: 1. Sepsis. 2. Fungemia. 3. Chronic cholecystitis. 4. Severe protein-calorie malnutrition. 5. Anemia of chronic disease. 6. Deep vein thrombosis of the right upper extremity. 7. Paroxysmal atrial fibrillation. 8. Coronary artery disease. 9. Chronic systolic congestive heart failure. 10. Ischemic cardiomyopathy. 11. Hypernatremia. 12. Hypokalemia. HOSPITAL COURSE: The patient was admitted back from his LTAC facility with fever. He was treated for sepsis and ultimately diagnosed with positive blood cultures for yeast. Dr. Kenyon Steele followed him and ordered antibiotics accordingly. He was also noted previously to have cholecystitis. Followup study and PIPIDA scan were obtained. Dr. Huizar saw him in consultation. The plan was for laparoscopic cholecystectomy. He had a complication of anasarca and fluid overload requiring diuretics. Due to poor intake and poor mentation, he developed hypernatremia that required IV fluid support. Ultimately, he was medically stabilized and taken to the operating room. He subsequently had an open cholecystectomy. Please see the operative report. Postoperatively, he was watched another day. His mental status was improving. He was more alert with clear speech. He was beginning to eat a regular diet. DISPOSITION: He will be transferred to [facility] facility. He will continue micafungin to complete a 20-day course post his last negative blood culture. Other medications to continue. We will coordinate surgical followup through the facility and with Dr. Huizar. <ELECTRONICALLY SIGNED> By: Perez Roberto MD 10/22/17 0851 0917 0937 Perez Roberto MD /nt
--- NOTE | ~2017-10-05 | S ---
[facility] [place] [address] SURGICAL PATH RPT PROCEDURE Name: KELLEN ZAVALA Room #: 358- ADM IN M.R.#: [id number] Admission: 10/05/17 Date of : 30 Discharge: Report #: [id number] Path Case #: [id number] PATHOLOGY REPORT COLLECTION DATE: 10/18/2017 RECEIVED DATE: 10/19/2017 SUBMITTING PHYS: Dr. Sav Huizar OTHER PHYS: Dr. Perez Steele SPECIMEN(S) RECEIVED: A.Gallbladder * * * * * * * * * * * * FINAL DIAGNOSIS: "Gallbladder", cholecystectomy: - Acute necrotizing cholecystitis. - Lymph node with hyperplasia (1 node). (CLW:efren; 10/20/2017) PATHOLOGIST: Maliha Tinoco M.D. REPORT ELECTRONICALLY SIGNED BY: Maliha Tinoco M.D. DATE/TIME: 10/20/2017 14:21 * * * * * * * * * * * * GROSS PATHOLOGY: Received in formalin labeled "Kellen Zavala, gallbladder" and consists of an emerald green and previously opened gallbladder that measures 9.0 cm in length by 4.7 cm in diameter. The margin is inked. There is a 0.5 cm lymph node candidate attached to the neck. The wall ranges in thickness from 0.3 cm-1.0 cm. There is gross transmural necrosis identified. The mucosa is coated with sludge-like dark brown bile. There are no calculi present within container. Powerhouse Tender sections are submitted as A1. (YESI; 10/19/2017) CLINICAL HISTORY: Gallbladder disease INITIAL CPT CODE(S): A; 48571 Professional services performed by [facility] at [facility] [address] , [place] [address] [facility] [address] [place] [address] SURGICAL PATH RPT PROCEDURE Name: LUCASKELLEN Room #: 358-P ADM IN M.R.#: [id number] Admission: 10/05/17 Date of : 30 Discharge: Report #: [id number] Path Case #: [id number] Technical services performed by [facility] at [address] [place] [address], [facility] [address] [address]. [facility] [address] [place] [address] PHONE: [phone] DIRECTOR: Segun Coreas M.D. * * * END OF REPORT * * *
--- NOTE | ~2017-10-05 | HC ---
[facility] [place] [address] CONSULTATION Name: KELLEN ZAVALA Room #: 358-P [facility] IN M.R.#: [id number] Admission: 10/05/17 Attend Phys: Perez Roberto MD Discharge: 10/20/17 Date of : 30 Report #: [id number] THIS REPORT FOR: //name// CC: Britton Roberto HISTORY OF PRESENT ILLNESS: The patient is an 87-year-old who was here a couple weeks ago. The patient had quite a bit of pleural fluid. He had respiratory issue. At that time, the patient was noted to have distended gallbladder with fluid around the gallbladder. It was difficult to tell whether this was a primary issue or it was secondary to fluid overload. The patient apparently was just transferred to [facility] and then brought back the same day. The patient was noted to have a fever of [address] Kenyon Steele identified emi in his bloodstream. He has been eating some, but his appetite has been very poor. He has had fairly poor p.o. intake. The patient is somewhat difficult to evaluate because of his chronic medical condition and his recent emergent surgery for bowel necrosis. PHYSICAL EXAMINATION: GENERAL: The patient is alert, but difficult to understand. ABDOMEN: It is hard to tell if he is tender in the right upper quadrant, does not seem to be reacting much with palpation. He has a midline wound at the lower part, has not quite epithelialized yet. No distention, guarding, rigidity. IMPRESSION: The patient is an 87-year-old who has fever of 103 and emi in the bloodstream. The patient had a PIPIDA scan performed since readmission and his gallbladder does not function. He had a large amount of sludge in the gallbladder on his last admission. We will go ahead and repeat an ultrasound to see what the gallbladder currently looks like and also obtain liver function tests. Apparently, when he got to long-term acute care at [facility], he has not really eaten very well. The patient will follow up after the liver function and ultrasounds are done. If it is acute inflammation, which may be difficult to tell from chronic nonfunctioning gallbladder, I would recommend possibly surgery to remove the gallbladder. <ELECTRONICALLY SIGNED> By: Sav Huizar MD 11/10/17 1413 1738 1936 Sav Huizar MD /nt
--- NOTE | ~2017-10-05 | HC ---
[facility] [place] [address] CONSULTATION Name: KELLEN ZAVALA Room #: 358-P ADM IN M.R.#: [id number] Admission: 10/05/17 Attend Phys: Perez Roberto MD Discharge: Date of : 30 Report #: [id number] THIS REPORT FOR: //name// CC: Britton Roberto REASON FOR CONSULTATION: I was asked to evaluate concerning recurring fever. HISTORY OF PRESENT ILLNESS: The patient was an 87-year-old, known from his recent hospitalization where he was diagnosed with healthcare-associated pneumonia, aspiration with respiratory failure. He also had component of congestive heart failure and bilateral pulmonary effusions. Following thoracentesis and IV antibiotic therapy, he did wean from the ventilator. He was discharged on October 05 to [facility]. After admission there, he spiked temperature to 103 degrees and returned to acute care within several hours. He became more confused and hypoxic. He did not require reintubation. He was given IV antibiotic therapy. Cultures were obtained. Temperature has come down today. He is more alert and cooperative. It is also noted that he pulled his Rdz catheter out and had to have it replaced. He has had bloody drainage from his urethra. Pain persists in his lower abdomen, felt related to this event. Notes that his pain today has improved. He has had no diarrhea. There has been no significant cough or sputum production. He has had no rash. ALLERGIES: None. MEDICATIONS: As noted on his MAR, now having started vancomycin and Zosyn. He did receive 1 dose of levofloxacin. PAST MEDICAL HISTORY: Bipolar disorder, ischemic heart disease, gastroesophageal reflux, hyperlipidemia, hypertension. He does have issues with aphasia. FAMILY HISTORY: Noncontributory. SOCIAL HISTORY: Single, nonsmoker, no significant alcohol intake. REVIEW OF SYSTEMS: As noted above. PHYSICAL EXAMINATION: VITAL SIGNS: Afebrile, hemodynamically stable. His maximum temperature today was 101.1 axillary. GENERAL: He was alert and cooperative. He did have aphasia, but was able to speak some, was not in any acute distress. He had peripheral IV in place. HEENT: Unremarkable. NECK: Supple. LUNGS: Few crackles in the bases with coarse breath sounds anteriorly. HEART: Regular. [facility] [address] [address] CONSULTATION Name: KELLEN ZAVALA Room #: 358-P ADM IN M.R.#: [id number] Admission: 10/05/17 Attend Phys: Perez Roberto MD Discharge: Date of : 30 Report #: [id number] ABDOMEN: Soft. No specific tenderness. His midline abdominal incisional wound was clean with good granulation tissue. No significant drainage. A 1+ lower extremity edema. GENITOURINARY: He had indwelling Rdz catheter. There was bloody drainage from his penis shaft. He did have evidence of urethral trauma noting that the catheter enters his penis mid shaft. No scrotal edema. RECTAL: Not performed. EXTREMITIES: Unremarkable. NEUROLOGIC: Nonfocal. LABORATORY STUDIES: Lactate 1.8. Sodium 142, potassium 3.5, creatinine 0.9, alkaline phosphatase 267. Hemoglobin 9, WBC 9.1 with 93% segs, 3% lymphs, platelet count was 244,000. Urinalysis positive for wbc's, rbc's and bacteria along with yeast. Chest x-ray showed persistent bilateral lower lobe atelectasis changes. The upper lobe changes improved from previous study. Urine culture negative at 24 hours with blood cultures negative at 24 hours. IMPRESSION: Acute febrile illness. Concerned about healthcare-associated infection, noting urethral trauma from traumatic removal of his catheter. I am suspecting this is most likely source. Pulmonary source would also be considered. Also noted that the patient had gallbladder distention during his last hospital stay. He is currently asymptomatic in this regard with no significant increase in his liver function test. PLAN: Would recommend continuing broad antibiotic coverage, awaiting final culture results. We will add fluconazole. If he should continue to run fever, we will reimage his abdomen and recheck the gallbladder. <ELECTRONICALLY SIGNED> By: Kenyon Steele MD 10/07/17 0951 1240 1512 Kenyon Steele MD /nt
--- NOTE | ~2017-10-05 | EKG ---
[address] [address] ELECTROCARDIOGRAM REPORT Name: KELLEN ZAVALA Room #: 358-P ADM IN M.R.#: [id number] Admission: 10/05/17 Attend Phys: Perez Roberto MD Discharge: Date of : 30 Report #: [id number] THIS REPORT FOR: //name// [facility] Test Date: 2017-10-13 Test Time: 17:45:30 Pat Name: KELLEN ZAVALA Department: Room: 358 P Gender: M Electrician Journeyman Wireman: Joya CRUZ : 1930 Requested By: Angi Ibanez Order Number: [id number] MD: Seb Hazel Measurements Intervals Newton Rate: 98 P: 38 OK: 166 QRS: 9 QRSD: 85 T: 61 QT: 402 QTc: 514 Interpretive Statements Sinus rhythm Anterior infarct, old Prolonged QT interval Compared to ECG 09/23/2017 20:41:05 Atrial premature complex(es) no longer present Electronically Signed On 10-14-2017 7:18:49 CDT by Seb Hazel [email or web address] <ELECTRONICALLY SIGNED> By: Seb Hazel MD, [facility] 10/14/17 07 174 174 Seb Hazel MD, [facility] /EPI
--- NOTE | ~2017-10-05 | HC ---
[facility] [place] [address] CONSULTATION Name: KELLEN ZAVALA Room #: 358-P ADM IN M.R.#: [id number] Admission: 10/05/17 Attend Phys: Perez Roberto MD Discharge: Date of : 30 Report #: [id number] THIS REPORT FOR: //name// CC: Britton Roberto DATE OF SERVICE: 10/06/2017 PERSONAL PHYSICIAN: Genaro Steele MD CHIEF COMPLAINT: Abdominal wound and gluteal friction wound. HISTORY OF PRESENT ILLNESS: This is an 87-year-old white male who was just discharged from the hospital yesterday after being hospitalized for pneumonia, sepsis and small-bowel obstruction. We have been following the patient at that time for abdominal wall wound, which has been healing nicely after he had a bowel resection on 08/11/2017. The patient was discharged yesterday to [facility]. The patient last evening spiked a fever to 103 and had altered mental status and was returned back to the [facility] for further care. We have been asked to continue to follow him for his abdominal wall wound. Also, on admission, the patient was noted to have friction wound on the right gluteal region. The patient himself is confused and has altered of altered mental status and unable to give any history whatsoever at this time. History is obtained from the Emergency Department notes. PAST MEDICAL HISTORY: Significant for small bowel obstruction with resection on 08/11/2017, history of coronary artery disease, bipolar disease, chronic anemia, atrial fibrillation, congestive heart failure, recent pneumonia with respiratory failure requiring mechanical ventilation. CURRENT MEDICATIONS: Multiple, I reviewed the patient's medication list. DRUG ALLERGIES: None. SOCIAL HISTORY: The patient recently was residing at [facility]. FAMILY HISTORY AND REVIEW OF SYSTEMS: Unobtainable because of the patient's mental status. PHYSICAL EXAMINATION: VITAL SIGNS: Temperature 38.4, pulse 104, respiratory rate 18, BP 117/64. GENERAL: This is an awake, but noncommunicative white male who feels moderately ill. HEENT: Normocephalic, atraumatic. Mucous membranes are dry. Pupils are round. Sclerae are white. [facility] [address] [place] [address] CONSULTATION Name: KELLEN ZAVALA Room #: 358-P [facility] IN M.R.#: [id number] Admission: 10/05/17 Attend Phys: Perez Roberto MD Discharge: Date of : 30 Report #: [id number] NECK: Supple. There is no JVD or rigidity. LUNGS: Coarse breath sounds heard throughout. HEART: Irregularly irregular with 2/6 systolic ejection murmur. ABDOMEN: Soft, essentially nontender. Midline abdominal surgical wound is clean, granulating without any sign of infection. Periwound is otherwise intact without erythema or warmth. There is no tunneling, tracking or undermining. There is minimal serous drainage without odor. GENITOURINARY: Examination of the penis shows excoriation on the top of the glans as well as some blood around the meatus with a Rdz catheter in place. It appears the patient possibly has pulled on this; however, I cannot find any actual acute trauma. Testicles are swollen, but nontender. There is no erythema, warmth or signs of cellulitis around the area of the testicles or penis. Evaluation of the gluteal region reveals a friction induced wound on the right gluteal region, which is superficial and partial thickness without signs of erythema, warmth or infection. There is blanchable erythema noted on both the right and left gluteal region without signs of any other pressure changes. EXTREMITIES: The patient moves all extremities spontaneously. Bilateral heels are intact. NEUROLOGIC: The patient is confused, but seems to move all extremities. LABORATORY VALUES: White count 9.1, hemoglobin 9.0. Electrolytes within normal limits except for slightly low potassium at 3.3. On admission, the patient's lactic acid was 2.2. His albumin is markedly low at 1.5. KUB shows no signs of bowel obstruction. WOUND CARE COURSE: At this time, we will continue with Puracol and Optifoam to the incisional wound on the abdominal wall. The patient seems to be responding well to this. The patient will be put in an air loss mattress and will be turned every 2 hours. We used barrier cream to the friction wound on the right buttock twice daily and p.r.n. soilage. We will need to make sure we maximize the patient's oral supplementation of protein for healing. Depending on the patient's clinical status, the patient might require PEG tube in the future for healing. At this time, the patient is not a candidate for occupational, physical therapy given his confusion. IMPRESSION: 1. Surgical wound abdominal wall, status post bowel resection, overall healing well. 2. History of pneumonia with respiratory failure. 3. Sepsis. 4. Right gluteal friction wound present on admission. 5. Dorsal penile glans excoriation present on admission. 6. Generalized debility. 7. Severe protein calorie malnutrition. [facility] [address] [place] [address] CONSULTATION Name: KELLEN ZAVALA Room #: 358-P ADM IN M.R.#: [id number] Admission: 10/05/17 Attend Phys: Perez Roberto MD Discharge: Date of : 30 Report #: [id number] PLAN: Described in length as above. I appreciate the ability to consult on this patient. We will continue to follow. <ELECTRONICALLY SIGNED> By: Lorenzo Khan MD 10/06/17 1339 1207 1315 Lorenzo Khan MD /nt
--- NOTE | ~2017-10-05 | H ---
[facility] [place] [address] HISTORY AND PHYSICAL Name: KELLEN ZAVALA Room #: 358-P [facility] IN M.R.#: [id number] Admission: 10/05/17 Attend Phys: Perez Roberto MD Discharge: Date of : 30 Report #: [id number] THIS REPORT FOR: //name// CC: Britton Roberto CHIEF COMPLAINT: Fever. HISTORY OF PRESENT ILLNESS: The patient is an 87-year-old gentleman, sent back from his LTAC facility for evaluation of fever. He was just hospitalized here for several weeks related to acute respiratory failure requiring intubation, mechanical ventilation and slow ventilator weaning. 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 Gradually, he was weaned from the vent and extubated, NG tube removed and he was advanced to a diet and sent up on the floor where he was for the last several days. He was switched to oral antibiotic and discharged to the LTAC facility. Upon arrival there, the report from nursing assessment was that he had a temperature of 103 and slightly hypoxic with room air sats in the high 80s to low 90s. He was redirected to the Emergency Room for evaluation. PAST MEDICAL HISTORY: As above. He has had history of cardiac arrest twice. He had a history of exploratory laparotomy with small bowel excision related to obstruction, and I believe necrosis that was treated at an [facility]. PAST SURGICAL HISTORY: As above. FAMILY HISTORY: Unknown. SOCIAL HISTORY: Unknown. ALLERGIES: None. MEDICATIONS: Aspirin, DuoNeb, Lovenox, Augmentin. REVIEW OF SYSTEMS: He opens his eyes to his name. He seems to nod yes or no, but really cannot give any other review. OBJECTIVE: VITAL SIGNS: Temperature 38.4, pulse 104, respirations 18, blood pressure 117/64, O2 sat 96% on room air. GENERAL: As mentioned, he opens his eyes to his name. HEAD AND NECK: Unremarkable. LUNGS: Clear. HEART: Regular. ABDOMEN: Soft, normoactive bowel sounds. Midline incisional scar. EXTREMITIES: No cyanosis, clubbing or edema. [facility] [address] [place] [address] HISTORY AND PHYSICAL Name: KELLEN ZAVALA Room #: 358-P [facility] IN .R.#: [id number] Admission: 10/05/17 Attend Phys: Perez Roberto MD Discharge: Date of : 30 Report #: [id number] NEUROLOGIC: He moves all extremities. Global strength about 3/5 throughout. Lab, x-ray data reviewed. Discussed the case with Dr. Kyle Steele. ASSESSMENT: 1. Febrile illness. 2. 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 3. Chronic systolic heart failure, EF 35%. 4. Atrial fibrillation. 5. Deep venous thrombosis of the right arm. 6. Recent major abdominal surgery. 7. Recent respiratory failure. 8. Oropharyngeal dysphagia. 9. Protein calorie malnutrition. 10. Anemia of chronic disease. 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 PLAN: General antibiotics have been ordered while working up his fever. At this point, most likely seems to be urinary tract. He is not hypoxic, so pneumonia seems less likely. Studies will continue and once stabilized, return to the LTAC. <ELECTRONICALLY SIGNED> By: Perez Roberto MD 10/07/17 0959 [id number] Perez Roberto MD /nt
--- NOTE | ~2017-10-05 | HC ---
[facility] [place] [address] CONSULTATION Name: KELLEN ZAVALA Room #: 358-P [facility] IN M.R.#: [id number] Admission: 10/05/17 Attend Phys: Perez Roberto MD Discharge: Date of : 30 Report #: [id number] THIS REPORT FOR: //name// CC: Britton Roberto DATE OF SERVICE: 10/15/2017 REASON FOR CONSULTATION: Hypernatremia. HISTORY OF PRESENT ILLNESS: The patient is not able to provide me with the history. He is confused. I am being consulted to manage his hypernatremia. He had been in and out of the hospital for numerous issues including pneumonia and respiratory failure. He is known to have extensive past medical history with ischemic heart disease, bipolar disorder, and hypertension. It looks like that he has some issues with aphasia. [facility]. He came back with confusion and hypoxia. He was treated accordingly in the Intensive Care Unit as a case of septic shock. He was then found to have what seems to be cholecystitis. I am being asked to evaluate his hypernatremia and manage accordingly. PAST MEDICAL HISTORY: 1. Status post cardiac arrest. 2. Ex-lap. 3. Hypertension. 4. Aphasia. 5. Recurrent pneumonia. PAST SURGICAL HISTORY: Unknown and the patient is not able to provide me with the details. FAMILY HISTORY: Unknown given the patient's mental status. SOCIAL HISTORY: Unobtainable given the patient's mental history. ALLERGIES: None. REVIEW OF SYSTEMS: Completely unobtainable given the patient's mental status. MEDICATIONS: Currently maintained on: 1. Lovenox. 2. Albuterol. 3. D5W. 4. Zosyn. PHYSICAL EXAMINATION: [facility] [address] [place] [address] CONSULTATION Name: KELLEN ZAVALA Room #: 358-P [facility] IN .R.#: [id number] Admission: 10/05/17 Attend Phys: Perez Roberto MD Discharge: Date of : 30 Report #: [id number] GENERAL: Disoriented. VITAL SIGNS: Temperature 36.8, blood pressure 140/84. HEAD AND NECK: Extremely dry mucous membrane. CHEST: No crackles. CARDIOVASCULAR: Regular. ABDOMEN: Soft, nontender. LOWER EXTREMITIES: No edema. LABORATORY DATA: Reviewed. Sodium is down to 156. Creatinine is 1.3. ASSESSMENT, IMPRESSION, PLAN: 1. Hypernatremia. 2. Cholecystitis. His hypernatremia is due to a total free body water deficit. This will need aggressive measures with the D5W. Avoid normal saline. Avoid lactated Ringer. Very high comorbidity. Very high risk for any surgical intervention. <ELECTRONICALLY SIGNED> By: Estevan Galicia MD 10/18/17 0848 [id number] Estevan Galicia MD /nt
--- NOTE | ~2017-10-05 | O ---
[facility] [place] [address] OPERATIVE REPORT Name: KELLEN AZVALA Room #: 358-P [facility] [place] M.R.#: [id number] Admission: 10/05/17 Attend Phys: Perez Roberto MD Discharge: 10/20/17 Date of : 30 Report #: [id number] THIS REPORT FOR: //name// CC: Britton Roberto DATE OF SERVICE: 10/18/2017 PREOPERATIVE DIAGNOSES: Cholecystitis with sludge and nonfunctional gallbladder. POSTOPERATIVE DIAGNOSES: Acute gangrenous cholecystitis with sludge. Intraabdominal adhesion from prior surgery and adhesions surrounding the gallbladder and walled off gallbladder by dense inflammation. PROCEDURES PERFORMED: Attempted laparoscopic approach converted to open cholecystectomy with intraoperative cholangiogram. SURGEON: Sav Huizar MD ANESTHESIA: General anesthesia. ESTIMATED BLOOD LOSS: 125 mL. COMPLICATIONS: None. FINDINGS: The patient had adhesions in the right abdomen. Laparoscopically was not able to identify the gallbladder. Incision was made in the right upper quadrant subcostally and the gallbladder was densely walled off. The gallbladder is necrotic. Small fluid around the gallbladder was cultured. The gallbladder fluid was also cultured. PROCEDURE NOTE: With the patient under general anesthesia, abdomen was prepped and draped in sterile fashion. The patient received IV antibiotics about 2 hours ago. He was on a scheduled course. The patient had a midline scar. An incision was made about the umbilical level, but on the right side. This was along the edge of the rectus muscle. After incising through the skin and subcutaneous tissue, the oblique muscle was divided. External oblique muscle was isolated. A 0 Vicryl suture placed on the fascia. Muscle was spread and then the posterior sheath was opened. It looked like there was a free space here and Origin balloon trocar was then placed through this. A 0 Vicryl suture placed on the posterior wall also for retraction. Abdominal cavity was insufflated with CO2 when I put the camera in. It can tell that I was underneath a thin omentum. I can see the transverse colon directly in front of me superior from where I was looking. There was adhesion of small bowel to the left side. No harm to any bowel. I did not see any open space. The abdominal [facility] [address] [place] [address] OPERATIVE REPORT Name: KELLEN ZAVALA Room #: 358-P [facility] IN M.R.#: [id number] Admission: 10/05/17 Attend Phys: Perez Roberto MD Discharge: 10/20/17 Date of : 30 Report #: [id number] cavity did inflate well with CO2. I did place a 5 mm trocar in the right upper quadrant underneath the ribcage and under visualization, the trocar was placed through the wall into the abdominal cavity, but there was no room in this area, no free space. I decided to go ahead and convert this to an open procedure. Subcostal incision was made. This measures about 4 inches. After opening the fascia wall, the posterior wall was stuck. The posterior wall was fused to the dense inflammatory process, which was surrounding the gallbladder. The gallbladder was visualized. There was a small amount of fluid here and the fluid was cultured. Once the wall was freed from the gallbladder, the gallbladder was freed from the surrounding tissue. I can actually identify the gallbladder and the gallbladder was gangrenous in appearance. The bile was suctioned about 50 mL. This was sent for culture. The initial fluid I found around the gallbladder was also cultured. The gallbladder, after it was decompressed, was able to be grasped with Pean clamps. I was able to free the gallbladder down to the gallbladder neck. There was a tubular structure, the gallbladder was adhesed to. Initially, I thought this was a cystic duct, but it was larger than typical. The gallbladder had folded itself on the common duct and the common duct was slightly bowed lateral direction. I was able to use a blunt peanut dissection and I was able to free the gallbladder from the common duct. There was still quite a bit of adhesion that was surrounding the gallbladder that I had to free up. I could not identify the duodenum that was under the adhesions. I was able to get in right adjacent to the gallbladder and not inferiorly enough to visualize the colon. Once the gallbladder was lifted away from the common duct, the cystic duct was then visualized. It was actually kind of stuck posteriorly. The cystic duct was then isolated. A clip was placed in junction of the cystic duct to the gallbladder. Cystic duct was opened and I could see a low opening and a cholangiogram catheter was placed in the cystic duct. I could not thread it any further. I was able to hold it with a clip and contrast actually injected through this without difficulty. The cholangiogram catheter was identified in the cystic duct, common duct filled out well. I did not see any filling defect in the common duct. The cholangiogram catheter was then removed. The proximal cystic duct was then clipped x 2 and then divided. The common duct was preserved. Adjacent to this, the cystic artery was isolated. When I first got around the cystic duct, there was some oozing posteriorly. Once I freed the cystic duct, I was able to identify the tissue which was the cystic artery. This was a rather difficult and adhesed and very firm type tissue. The branches isolated, clips were applied and then divided between 2 proximal clips. Gallbladder at this point did not have very good gallbladder. At this point, it was pretty well stuck to the liver and there was no good plane posteriorly. I was able to start a little bit of it and then used my finger to help guide the plane. Also, I started towards the proximal gallbladder and then also did it from the fundus of the gallbladder downward. Gallbladder was freed. Cautery was used for hemostasis. Copious irrigation was performed. A #19 Jose drain was brought out laterally. When I opened the lateral wall, there was actually free space around the hepatic flexure that I was able to see, but this open area was quite [facility] [address] [place] [address] OPERATIVE REPORT Name: KELLEN ZAVALA Room #: 358-[facility] IN M.R.#: [id number] Admission: 10/05/17 Attend Phys: Perez Roberto MD Discharge: 10/20/17 Date of : 30 Report #: [id number] posterolaterally located. A #19 Jose drain was brought out laterally. The drain was shortened. The drain was sutured to the skin with 2-0 nylon suture at the black dot site. Irrigation was then performed. The abdominal wall was then closed. The posterior layer was closed with 0 PDS. Anterior layer was closed with 0 Prolene in a running fashion. The cutdown side was also closed with 0 PDS [id number] x 1 posterior layer, [id number] x 2 anterior fascial layer. Skin was irrigated. The skin at the trocar site was closed with 5-0 PDS. The main incision was closed with 4-0 PDS running subcuticular fashion. Steri-Strips applied, 4 x 4s, OpSite used for dressing. A drain dressing was also placed. The patient tolerated the procedure well and was taken to recovery room. <ELECTRONICALLY SIGNED> By: Sav Huizar MD 11/10/17 1413 [id number] Sav Huizar MD /nt
[~2017-10-05 18:02] MED LIST: ASPIR 8181 MG PO; AUGMENTIN 875-1 EACH PO; BAZA CR.1 E1 TOP; CLINIMIX E IV; CLOTRIMAZOLE 1%15 G1 TOP; COUMADIN 4 MG TA4 M1 PO; DUONEB 2.5-0.5 M3 ML INH; ENOXAPARIN80 MG/0.1 SUBQ; LASIX 40 MG TAB40 M2 PO; LEVEMIR100 UNIT/1 SUBQ; LIPITOR40 MG PO; NOVOLOG100 UNIT/1 SUBQ; PROTONIX40 M1 PO; PROZAC 10 MG CA10 MG PO; SMOFLIPID 20%100 ML IV; TAMSULOSIN HCL0.4 MG PO; TOPROL XL25 MG PO; UNICOMPLEX M TA1 TA1 PO; ZOSYN 3/0.373.375 G3 IVPB
[2017-10-05 18:04] VITALS: BP 116/61
[2017-10-05 18:51] LABS: URINE BILIRUBIN 1+ (Negative); URINE BLOOD 3+ (Negative); URINE CLARITY CLEAR; URINE COLOR YELLOW; URINE GLUCOSE-RANDOM* NEGATIVE (Negative); URINE KETONES NEGATIVE (Negative); URINE LEUKOCYTES TRACE (Negative); URINE NITRITE NEGATIVE (Negative); URINE PROTEIN (DIPSTICK) 1+ (Negative)
[2017-10-05 18:54] LABS: ICTOTEST (BILI CONFIRMATORY) Negative (Negative)
[2017-10-05 18:57] LABS: MUCUS >6 Heavy strn/LPF (None Seen); SQUAMOUS 4-10 Moderate /LPF (0-3); URINE RBC >20 Many /HPF (0-2); URINE WBC >25 Many /HPF (0-5)
[2017-10-05 18:58] LABS: CRYSTALS None Seen /LPF (None Seen); FINE GRANULAR CASTS 4-10 Moderate /LPF (None Seen); HYALINE CASTS 0-3 Few /LPF (None Seen); YEAST Present (None Seen)
[2017-10-05 19:57] LABS: ABSOLUTE NEUTROPHILS 8.6 thou/uL (1.4-8.2); BASOPHILS 0.5 % (0.0-2.0); EOSINOPHILS 0.1 % (0.0-3.0); HEMATOCRIT 28.5 % (42.0-52.0); LYMPHOCYTES 3.4 % (24.0-44.0); MCH 28.2 pg (26.0-34.0); MCHC 31.7 g/dL (28.0-37.0); MCV 89.2 fL (80.0-100.0); MONOCYTES 2.1 % (1.0-8.0); PLATELET COUNT 244 thou/uL (150-400); POLYS 93.9 % (36.0-66.0); RBC 3.19 mil/uL (4.50-6.00); RDW 18.7 % (10.5-14.5); WBC 9.1 thou/uL (4.0-11.0)
[2017-10-05 20:07] LABS: CALCIUM 8.1 mg/dL (8.5-10.1); CREATININE 0.8 mg/dL (0.7-1.3); POTASSIUM 3.3 mmol/L (3.5-5.1)
[2017-10-05 20:24] LABS: ALBUMIN 1.5 g/dL (3.4-5.0); TOTAL BILIRUBIN 0.7 mg/dL (<0.1-1.0)
[2017-10-05 20:32] VITALS: BP 102/69
[2017-10-05 21:10] LABS: ANISOCYTOSIS 2+; POLYCHROMASIA SLIGHT
[2017-10-05 21:27] VITALS: BP 110/70
[2017-10-05 21:50] VITALS: BP 96/54
[2017-10-05 23:40] VITALS: BP 131/78
[2017-10-06 01:58] LABS: CALCIUM 7.9 mg/dL (8.5-10.1); CREATININE 0.9 mg/dL (0.7-1.3); MAGNESIUM 1.6 mg/dL (1.8-2.4); POTASSIUM 3.5 mmol/L (3.5-5.1)
[2017-10-06 02:20] VITALS: BP 115/69
[2017-10-06 03:45] VITALS: BP 121/69
[2017-10-06 08:17] VITALS: BP 126/65
[2017-10-06 11:28] VITALS: BP 117/64
[2017-10-06 15:21] VITALS: BP 96/58
[2017-10-06 19:25] VITALS: BP 102/56
[2017-10-07] VITALS (8 sets, daily range): BP systolic 118–140; BP diastolic 60–81
[2017-10-07 05:21] LABS: CREATININE 0.8 mg/dL (0.7-1.3); POTASSIUM 3.6 mmol/L (3.5-5.1)
[2017-10-07 05:50] LABS: HEMATOCRIT 27.2 % (42.0-52.0); HEMOGLOBIN 8.6 gm/dL (14.0-18.0); MCH 28.4 pg (26.0-34.0); MCHC 31.6 g/dL (28.0-37.0); MCV 89.9 fL (80.0-100.0); RBC 3.03 mil/uL (4.50-6.00); RDW 18.1 % (10.5-14.5); WBC 5.2 thou/uL (4.0-11.0)
[2017-10-07 10:30] LABS: ALBUMIN 1.4 g/dL (3.4-5.0); DIRECT BILIRUBIN 0.2 mg/dL (<0.1-0.3); TOTAL BILIRUBIN 0.6 mg/dL (<0.1-1.0); TOTAL PROTEIN 5.7 g/dL (6.4-8.2)
[2017-10-08 03:15] VITALS: BP 143/57
[2017-10-08 05:34] LABS: HEMOGLOBIN 9.1 gm/dL (14.0-18.0); MCH 28.8 pg (26.0-34.0); MCHC 32.4 g/dL (28.0-37.0); MCV 88.9 fL (80.0-100.0); RBC 3.15 mil/uL (4.50-6.00); RDW 18.3 % (10.5-14.5); WBC 5.6 thou/uL (4.0-11.0)
[2017-10-08 05:42] LABS: CREATININE 0.9 mg/dL (0.7-1.3)
[2017-10-08 08:07] VITALS: BP 139/73
[2017-10-08 11:38] VITALS: BP 131/76
[2017-10-08 15:55] VITALS: BP 151/85
[2017-10-08 19:35] VITALS: BP 111/74
[2017-10-09 00:40] LABS: CALCIUM 8.3 mg/dL (8.5-10.1); MAGNESIUM 1.9 mg/dL (1.8-2.4)
[2017-10-09 00:41] LABS: POTASSIUM 2.8 mmol/L (3.5-5.1)
[2017-10-09 03:55] VITALS: BP 160/98
[2017-10-09 04:33] LABS: HEMATOCRIT 28.6 % (42.0-52.0); HEMOGLOBIN 9.3 gm/dL (14.0-18.0); MCH 28.7 pg (26.0-34.0); MCHC 32.5 g/dL (28.0-37.0); MCV 88.3 fL (80.0-100.0); RBC 3.24 mil/uL (4.50-6.00); RDW 18.1 % (10.5-14.5); WBC 6.2 thou/uL (4.0-11.0)
[2017-10-09 07:49] VITALS: BP 145/75
[2017-10-09 12:13] VITALS: BP 122/68
[2017-10-09 15:50] VITALS: BP 118/60
[2017-10-09 19:24] VITALS: BP 139/80
[2017-10-10 05:20] VITALS: BP 145/88
[2017-10-10 08:00] VITALS: BP 136/88
[2017-10-10 12:04] VITALS: BP 133/74
[2017-10-10 16:06] VITALS: BP 133/69
[2017-10-10 19:17] VITALS: BP 142/79
[2017-10-11 03:20] VITALS: BP 139/78
[2017-10-11 05:51] LABS: HEMATOCRIT 28.6 % (42.0-52.0); HEMOGLOBIN 9.1 gm/dL (14.0-18.0); MCH 28.1 pg (26.0-34.0); MCHC 31.9 g/dL (28.0-37.0); MCV 88.1 fL (80.0-100.0); RBC 3.24 mil/uL (4.50-6.00); RDW 18.4 % (10.5-14.5); WBC 7.8 thou/uL (4.0-11.0)
[2017-10-11 05:56] LABS: CALCIUM 8.2 mg/dL (8.5-10.1); CREATININE 1.2 mg/dL (0.7-1.3)
[2017-10-11 06:08] LABS: POTASSIUM 2.7 mmol/L (3.5-5.1)
[2017-10-11 08:00] VITALS: BP 142/72
[2017-10-11 11:32] VITALS: BP 136/85
[2017-10-11 15:45] VITALS: BP 155/89
[2017-10-11 19:13] LABS: CALCIUM 8.5 mg/dL (8.5-10.1); CREATININE 1.4 mg/dL (0.7-1.3)
[2017-10-11 19:15] LABS: POTASSIUM 2.8 mmol/L (3.5-5.1)
[2017-10-11 20:20] VITALS: BP 149/77
[2017-10-12 04:45] VITALS: BP 139/90
[2017-10-12 04:52] LABS: CALCIUM 8.3 mg/dL (8.5-10.1); CREATININE 1.3 mg/dL (0.7-1.3)
[2017-10-12 04:57] LABS: POTASSIUM 2.8 mmol/L (3.5-5.1)
[2017-10-12 05:23] LABS: HEMATOCRIT 28.3 % (42.0-52.0); HEMOGLOBIN 9.2 gm/dL (14.0-18.0); MCH 28.5 pg (26.0-34.0); MCHC 32.5 g/dL (28.0-37.0); MCV 87.7 fL (80.0-100.0); RBC 3.23 mil/uL (4.50-6.00); RDW 18.8 % (10.5-14.5)
[2017-10-12 07:57] VITALS: BP 135/63
[2017-10-12 10:34] VITALS: BP 146/74
[2017-10-12 11:13] VITALS: BP 145/83
[2017-10-12 12:49] LABS: CALCIUM 8.1 mg/dL (8.5-10.1); CREATININE 1.3 mg/dL (0.7-1.3); MAGNESIUM 1.7 mg/dL (1.8-2.4)
[2017-10-12 12:53] LABS: POTASSIUM 2.7 mmol/L (3.5-5.1)
[2017-10-12 14:30] VITALS: BP 130/76
[2017-10-12 19:15] VITALS: BP 150/79
[2017-10-13 04:30] VITALS: BP 127/84
[2017-10-13 05:47] LABS: HEMATOCRIT 29.5 % (42.0-52.0); HEMOGLOBIN 9.3 gm/dL (14.0-18.0); MCH 28.2 pg (26.0-34.0); MCHC 31.5 g/dL (28.0-37.0); MCV 89.4 fL (80.0-100.0); RBC 3.3 mil/uL (4.50-6.00); RDW 18.7 % (10.5-14.5); WBC 5.7 thou/uL (4.0-11.0)
[2017-10-13 06:05] LABS: CALCIUM 8.4 mg/dL (8.5-10.1); CREATININE 1.2 mg/dL (0.7-1.3); POTASSIUM 3.1 mmol/L (3.5-5.1)
[2017-10-13 06:13] LABS: ALBUMIN 1.5 g/dL (3.4-5.0); DIRECT BILIRUBIN 0.2 mg/dL (<0.1-0.3); TOTAL BILIRUBIN 0.8 mg/dL (<0.1-1.0); TOTAL PROTEIN 5.9 g/dL (6.4-8.2)
[2017-10-13 08:00] VITALS: BP 139/85
[2017-10-13 11:03] VITALS: BP 136/83
[2017-10-13 20:50] VITALS: BP 133/83
[2017-10-14 02:51] LABS: CALCIUM 8.6 mg/dL (8.5-10.1); CREATININE 1.3 mg/dL (0.7-1.3); POTASSIUM 3.5 mmol/L (3.5-5.1)
[2017-10-14 04:00] VITALS: BP 137/89
[2017-10-14 07:36] VITALS: BP 144/83
[2017-10-14 12:26] VITALS: BP 124/71
[2017-10-14 15:50] VITALS: BP 133/87
[2017-10-14 16:32] LABS: CALCIUM 8.2 mg/dL (8.5-10.1); CREATININE 1.3 mg/dL (0.7-1.3); POTASSIUM 3.2 mmol/L (3.5-5.1)
[2017-10-14 17:05] LABS: URINE POTASSIUM-RANDOM* 26.9 mmol/L
[2017-10-14 19:20] VITALS: BP 152/90
[2017-10-15 03:45] VITALS: BP 128/68
[2017-10-15 04:25] LABS: CALCIUM 8.5 mg/dL (8.5-10.1); CREATININE 1.3 mg/dL (0.7-1.3); POTASSIUM 3.4 mmol/L (3.5-5.1)
[2017-10-15 07:40] VITALS: BP 142/84
[2017-10-15 13:01] LABS: CALCIUM 8.5 mg/dL (8.5-10.1); CREATININE 1.2 mg/dL (0.7-1.3); POTASSIUM 3.4 mmol/L (3.5-5.1)
[2017-10-15 15:56] VITALS: BP 140/87
[2017-10-15 19:34] VITALS: BP 134/74
[2017-10-16 03:40] VITALS: BP 139/93
[2017-10-16 06:04] LABS: ALBUMIN 1.6 g/dL (3.4-5.0); CALCIUM 8.1 mg/dL (8.5-10.1); CREATININE 1.1 mg/dL (0.7-1.3); PHOSPHORUS 2.4 mg/dL (2.5-4.9); POTASSIUM 4.3 mmol/L (3.5-5.1)
[2017-10-16 06:21] LABS: HEMATOCRIT 32.9 % (42.0-52.0); HEMOGLOBIN 10.2 gm/dL (14.0-18.0); MCH 28.1 pg (26.0-34.0); MCV 90.7 fL (80.0-100.0); RBC 3.62 mil/uL (4.50-6.00); RDW 19.6 % (10.5-14.5); WBC 5.4 thou/uL (4.0-11.0)
[2017-10-16 07:23] VITALS: BP 131/80
[2017-10-16 11:02] VITALS: BP 137/80
[2017-10-16 15:15] VITALS: BP 114/58
[2017-10-16 19:48] VITALS: BP 125/80
[2017-10-17 03:49] VITALS: BP 127/83
[2017-10-17 04:00] LABS: ALBUMIN 1.4 g/dL (3.4-5.0); CREATININE 1.1 mg/dL (0.7-1.3); PHOSPHORUS 2.3 mg/dL (2.5-4.9)
[2017-10-17 04:03] LABS: POTASSIUM 3.3 mmol/L (3.5-5.1)
[2017-10-17 07:22] VITALS: BP 121/86
[2017-10-17 11:23] VITALS: BP 139/96
[2017-10-17 16:31] VITALS: BP 124/78
[2017-10-17 20:00] VITALS: BP 135/94
[2017-10-18 03:50] VITALS: BP 129/89
[2017-10-18 05:51] LABS: ALBUMIN 1.3 g/dL (3.4-5.0); CALCIUM 8.3 mg/dL (8.5-10.1); CREATININE 1.1 mg/dL (0.7-1.3); PHOSPHORUS 2.4 mg/dL (2.5-4.9); POTASSIUM 3.8 mmol/L (3.5-5.1)
[2017-10-18 07:00] VITALS: BP 139/84
[2017-10-18 08:48] LABS: ABSOLUTE NEUTROPHILS 3.1 thou/uL (1.4-8.2); BASOPHILS 0.6 % (0.0-2.0); EOSINOPHILS 1.8 % (0.0-3.0); HEMATOCRIT 31.3 % (42.0-52.0); LYMPHOCYTES 30.6 % (24.0-44.0); MCH 28.1 pg (26.0-34.0); MCHC 31.8 g/dL (28.0-37.0); MCV 88.4 fL (80.0-100.0); MONOCYTES 4.6 % (1.0-8.0); PLATELET COUNT 119 thou/uL (150-400); POLYS 62.4 % (36.0-66.0); RBC 3.54 mil/uL (4.50-6.00); RDW 19.9 % (10.5-14.5); WBC 4.9 thou/uL (4.0-11.0)
[2017-10-18 08:59] LABS: INR 1.1; PROTIME 11.1 Seconds (9.3-11.4)
[2017-10-18 11:30] VITALS: BP 136/76
[2017-10-18 13:55] VITALS: BP 1119/87
[2017-10-18 19:13] VITALS: BP 118/72
[2017-10-18 23:45] VITALS: BP 127/77
[2017-10-19 04:00] VITALS: BP 157/70
[2017-10-19 05:38] LABS: ABSOLUTE NEUTROPHILS 4.6 thou/uL (1.4-8.2); BASOPHILS 0.4 % (0.0-2.0); EOSINOPHILS 0.4 % (0.0-3.0); HEMATOCRIT 28.3 % (42.0-52.0); LYMPHOCYTES 16.1 % (24.0-44.0); MCH 28.6 pg (26.0-34.0); MCHC 31.7 g/dL (28.0-37.0); MCV 90.2 fL (80.0-100.0); MONOCYTES 4.9 % (1.0-8.0); PLATELET COUNT 122 thou/uL (150-400); POLYS 78.2 % (36.0-66.0); RBC 3.14 mil/uL (4.50-6.00); RDW 20.4 % (10.5-14.5); WBC 5.9 thou/uL (4.0-11.0)
[2017-10-19 06:19] LABS: ALBUMIN 1.3 g/dL (3.4-5.0); CALCIUM 8.2 mg/dL (8.5-10.1); CREATININE 1.2 mg/dL (0.7-1.3); PHOSPHORUS 2.6 mg/dL (2.5-4.9); POTASSIUM 3.2 mmol/L (3.5-5.1)
[2017-10-19 08:14] VITALS: BP 123/74
[2017-10-19 11:59] VITALS: BP 121/64
[2017-10-19 16:04] VITALS: BP 132/70
[2017-10-19 19:45] VITALS: BP 129/71
[2017-10-20 04:15] VITALS: BP 127/84
[2017-10-20 06:32] LABS: HEMATOCRIT 26.1 % (42.0-52.0); HEMOGLOBIN 8.3 gm/dL (14.0-18.0); MCH 28.3 pg (26.0-34.0); MCHC 31.8 g/dL (28.0-37.0); RBC 2.94 mil/uL (4.50-6.00); RDW 20.4 % (10.5-14.5); WBC 4.5 thou/uL (4.0-11.0)
[2017-10-20 06:49] LABS: CALCIUM 8.1 mg/dL (8.5-10.1); CREATININE 1.1 mg/dL (0.7-1.3); POTASSIUM 3.7 mmol/L (3.5-5.1)
[2017-10-20 07:05] VITALS: BP 131/74
[2017-10-20] MEDS ORDERED: HYDROCODON-ACE1 EAC7 PO (12:42)
[2017-10-20] MEDS ORDERED: ACETAMINOPHEN325 M1 PO (12:43)
[2017-10-20] MEDS ORDERED: ELIQUIS2.5 MG PO (12:43)
[2017-10-20] MEDS ORDERED: MYCAMINE100 MG IV (12:45)
== END 2017-10-20 14:23 | DRG 853 ==
LOC: ER 18:02 → 3W 20:48 → EROBS 20:48 → 3W 21:34
PROVIDERS: Hospitalist; Internal Medicine Geriatric Medicine; Physician Assistant; Radiology Diagnostic Radiology; Surgery
PROC: 0FJ44ZZ Inspection of Gallbladder, Percutaneous Endoscopic Approach (ICD-10-PCS; principal; 2017-10-18)
PROC: 0FT40ZZ Resection of Gallbladder, Open Approach (ICD-10-PCS; principal; 2017-10-18)
PROC: 02HV33Z Insertion of Infusion Device into Superior Vena Cava, Percutaneous Approach (ICD-10-PCS; 2017-10-18)
PROC: B548ZZA Ultrasonography of Superior Vena Cava, Guidance (ICD-10-PCS; 2017-10-18)
PROC: B5181ZA Fluoroscopy of Superior Vena Cava using Low Osmolar Contrast, Guidance (ICD-10-PCS; 2017-10-18)
DX: A41.9 Sepsis, unspecified organism (principal); E43 Unspecified severe protein-calorie malnutrition; J18.9 Pneumonia, unspecified organism; J96.90 Respiratory failure, unspecified, unspecified whether with hypoxia or hypercapnia; E87.0 Hyperosmolality and hypernatremia; I50.22 Chronic systolic (congestive) heart failure; B49 Unspecified mycosis; G72.81 Critical illness myopathy; K81.0 Acute cholecystitis; Z68.1 Body mass index [BMI] 19.9 or less, adult; F31.9 Bipolar disorder, unspecified; K21.9 Gastro-esophageal reflux disease without esophagitis; R65.20 Severe sepsis without septic shock; I25.10 Atherosclerotic heart disease of native coronary artery without angina pectoris; E78.5 Hyperlipidemia, unspecified; I11.0 Hypertensive heart disease with heart failure; K81.1 Chronic cholecystitis; I25.5 Ischemic cardiomyopathy; E87.6 Hypokalemia; I48.0 Paroxysmal atrial fibrillation; D63.8 Anemia in other chronic diseases classified elsewhere; N30.90 Cystitis, unspecified without hematuria; K66.0 Peritoneal adhesions (postprocedural) (postinfection); D69.6 Thrombocytopenia, unspecified; Z86.718 Personal history of other venous thrombosis and embolism; I25.2 Old myocardial infarction; Z86.74 Personal history of sudden cardiac arrest; Z79.899 Other long term (current) drug therapy
CPT/HCPCS: 10779; 27000; 50010; 50101; 50411; 50555; 50558; 51489; 52256; 52265; 53065; 53307; 53310; 55245; 55317; 56462; 56525; 56526; 62110; 62900; 70005